=== PATIENT | female | born 1980 | race Caucasian/White ===

== ENCOUNTER 2017-05-26 13:58 | Emergency (ER) | payer OTHER ==
[~2017-05-26] VITALS: Ht 160 cm; Wt 63.5 kg
[~2017-05-26 13:58] MED LIST: AMOXICILLIN500 MG PO; FLEXERIL5 MG PO; MEDROL DOSEPAK4 MG PO; MOTRIN800 MG PO; NORCO 325 MG-101 TAB PO; ROBITUSSIN AC 110 ML PO; VICODIN 5/500 505 MG PO
[2017-05-26] MEDS ORDERED: CYCLOBENZAPRINE5 M3 PO (15:36)
[2017-05-26] MEDS ORDERED: Motrin,Rufen800 MG PO (15:36)
== END 2017-05-26 22:03 | disposition home or self-care (01) ==
LOC: ED 13:58
DX: S39.012A Strain of muscle, fascia and tendon of lower back, initial encounter (principal); F17.200 Nicotine dependence, unspecified, uncomplicated; X58.XXXA Exposure to other specified factors, initial encounter; Y93.89 Activity, other specified; Y92.9 Unspecified place or not applicable; Y99.9 Unspecified external cause status

== ENCOUNTER → 2023-03-28 | Outpatient (CLI) | payer OTHER ==
[~2023-03-28] MED LIST changes: +CYCLOBENZAPRINE5 M3 PO; +Motrin,Rufen800 MG PO
[2023-03-28 16:45] LABS: BASO % 0.5 % (0.0-1.0); EOS # 0.1 10*3/uL (0.0-0.4); EOS % 1.2 % (1.0-4.0); HEMATOCRIT 36.8 % (37.0-47.0); LYMPH # 2.7 10*3/uL (1.3-4.4); LYMPH % 35.5 % (27.0-41.0); MEAN CORPUSCULAR HGB 29.6 pg (27.0-31.0); MEAN CORPUSCULAR HGB CONC 32.9 g/dl (33.0-37.0); MEAN PLATELET VOLUME 10.3 fl (9.6-12.3); MONO # 0.4 10*3/uL (0.1-1.0); MONO % 5.3 % (3.0-9.0); NEUT # 4.4 10*3/uL (2.3-7.9); NEUT % 57.2 % (47.0-73.0); PLATELET COUNT AUTOMATED 286 10*3/uL (130-400); RED BLOOD COUNT 4.09 10*6/uL (4.10-5.10); RED CELL DISTRI WIDTH 12.5 % (0-14.5); WHITE BLOOD COUNT 7.7 10*3/uL (4.8-10.8)
[2023-03-28 16:49] LABS: BILIRUBIN Negative (Negative); BLOOD Negative (Negative); CLARITY Clear (Clear); COLOR Yellow (Yellow); GLUCOSE Negative (Negative); KETONE Negative (Negative); LEUKO ESTERASE 2+ (Negative); NITRITE Negative (Negative); UROBILINOGEN 0.2 E.U./dl (0.0-1.0)
[2023-03-28 17:08] LABS: BACTERIA 1+; RBC 0-2 rbc/hpf (0-2); WBC 16-20 wbc/hpf (0-5)
[2023-03-28 17:09] LABS: ALKALINE PHOSPHATASE 83 U/L (46-116); BUN 13 mg/dl (9-23); CHLORIDE 108 mmol/L (98-107); CHOLESTEROL 173 mg/dL (<200); LDL CHOLESTEROL 80 mg/dL (9-159); POTASSIUM 3.8 mmol/L (3.4-5.1); SGPT/ALT 16 U/L (10-49); TOTAL PROTEIN 7.3 gm/dL (6.0-8.0); TRIGLYCERIDES 162 mg/dl (<150)
== END | disposition home or self-care (01) ==
LOC: LAB 16:16
PROVIDERS: ATTEND Nurse Practitioner Family
DX: Z00.01 Encounter for general adult medical examination with abnormal findings (principal); Z13.1 Encounter for screening for diabetes mellitus; Z13.6 Encounter for screening for cardiovascular disorders

== ENCOUNTER → 2023-03-29 | Outpatient (CLI) | payer OTHER | END | disposition home or self-care (01) | LOC: LAB 16:15 | PROVIDERS: ATTEND Nurse Practitioner Women's Health | DX: N95.1 Menopausal and female climacteric states (principal); R68.82 Decreased libido ==

== ENCOUNTER → 2023-05-12 | Outpatient (CLI) | payer OTHER ==
[~2023-05-12] MED LIST changes: +BUPROPION HCL150 M3 PO
[2023-05-12 10:34] LABS: FREE T4 0.98 ng/dl (0.89-1.76)
[2023-05-13 08:09] LABS: THYROID PEROXIDASE (TPO) AB 9 IU/mL (0-34)
[2023-05-13 13:06] LABS: ANTI-DSDNA ANTIBODIES 1 IU/mL (0-9); ANTI-RNP ANTIBODIES <0.2 AI (0.0-0.9); ANTICHROMATIN ANTIBODIES <0.2 AI (0.0-0.9); ANTISCLERODERMA-70 AB <0.2 AI (0.0-0.9); SJOGREN ANTI-SS-A <0.2 AI (0.0-0.9); SJOREN AB, ANTI-SS-B <0.2 AI (0.0-0.9)
[2023-05-13 15:07] LABS: THYROGLOBULIN ANTIBODY <1.0 IU/mL (0.0-0.9)
== END | disposition home or self-care (01) ==
LOC: LAB 08:59 → MAMMO 09:30
PROVIDERS: ATTEND Nurse Practitioner Women's Health
DX: Z12.31 Encounter for screening mammogram for malignant neoplasm of breast (principal); N63.21 Unspecified lump in the left breast, upper outer quadrant; R79.89 Other specified abnormal findings of blood chemistry; R07.9 Chest pain, unspecified

== ENCOUNTER → 2023-05-18 | Outpatient (CLI) | payer OTHER | END | disposition home or self-care (01) | LOC: CARD 01:54 | PROVIDERS: ATTEND Nurse Practitioner Family | DX: I37.1 Nonrheumatic pulmonary valve insufficiency (principal); R01.1 Cardiac murmur, unspecified ==

== ENCOUNTER → 2023-05-26 | Outpatient (CLI) | payer OTHER | END | disposition home or self-care (01) | LOC: MAMMO 07:47 | PROVIDERS: ATTEND Nurse Practitioner Women's Health | DX: N63.21 Unspecified lump in the left breast, upper outer quadrant (principal) ==

== ENCOUNTER 2023-09-12 04:26 | Emergency (ER) | payer OTHER ==
[~2023-09-12] VITALS: Ht 160 cm; Wt 78.0 kg
[2023-09-12 05:31] LABS: BILIRUBIN Negative (Negative); BLOOD Negative (Negative); CLARITY Clear (Clear); COLOR Yellow (Yellow); GLUCOSE Negative (Negative); KETONE Negative (Negative); LEUKO ESTERASE Negative (Negative); NITRITE Negative (Negative); PH 5.5 (4.5-8.0); SPECIFIC GRAVITY 1.015 (1.001-1.030); UROBILINOGEN 0.2 E.U./dl (0.0-1.0)
[2023-09-12 05:38] LABS: RBC 0-2 rbc/hpf (0-2); WBC 0-2 wbc/hpf (0-5)
[2023-09-12] MEDS ORDERED: NAPROXEN250 MG PO (05:47)
[2023-09-12] MEDS ORDERED: METHOCARBAMOL500 M1 PO (05:47)
== END 2023-09-12 06:06 | disposition home or self-care (01) ==
LOC: ED 04:26
PROVIDERS: Internal Medicine
DX: S39.012A Strain of muscle, fascia and tendon of lower back, initial encounter (principal); Z90.710 Acquired absence of both cervix and uterus; X58.XXXA Exposure to other specified factors, initial encounter; Y93.89 Activity, other specified; Y92.009 Unspecified place in unspecified non-institutional (private) residence as the place of occurrence of the external cause; Y99.8 Other external cause status

== ENCOUNTER → 2024-06-19 | Outpatient (CLI) | payer OTHER ==
[~2024-06-19] MED LIST changes: +METHOCARBAMOL500 M1 PO; +NAPROXEN250 MG PO
[2024-06-19 10:14] LABS: BASO % 0.8 % (0.0-1.0); EOS # 0.1 10*3/uL (0.0-0.4); EOS % 1.5 % (1.0-4.0); HEMATOCRIT 39.2 % (37.0-47.0); MEAN CELL VOLUME 90.1 fl (81.0-99.0); MEAN CORPUSCULAR HGB 29.4 pg (27.0-31.0); MEAN CORPUSCULAR HGB CONC 32.7 g/dl (33.0-37.0); MEAN PLATELET VOLUME 9.6 fl (9.6-12.3); MONO # 0.5 10*3/uL (0.1-1.0); MONO % 8.7 % (3.0-9.0); NEUT # 3.2 10*3/uL (2.3-7.9); NEUT % 60.5 % (47.0-73.0); PLATELET COUNT AUTOMATED 265 10*3/uL (130-400); RED BLOOD COUNT 4.35 10*6/uL (4.10-5.10); RED CELL DISTRI WIDTH 12.3 % (0-14.5); WHITE BLOOD COUNT 5.2 10*3/uL (4.8-10.8)
[2024-06-19 10:39] LABS: ALKALINE PHOSPHATASE 89 U/L (46-116); BUN 13 mg/dl (9-23); CHLORIDE 105 mmol/L (98-107); SGPT/ALT 62 U/L (5-49); TOTAL PROTEIN 7.5 gm/dL (6.0-8.0)
== END | disposition home or self-care (01) ==
LOC: LAB 09:53
PROVIDERS: ATTEND Nurse Practitioner Family
DX: E03.9 Hypothyroidism, unspecified (principal)

== ENCOUNTER → 2024-11-02 | Outpatient (CLI) | payer OTHER | END | disposition home or self-care (01) | LOC: ORTHO 02:20 | PROVIDERS: ATTEND Orthopaedic Surgery | DX: D16.22 Benign neoplasm of long bones of left lower limb (principal) ==

== ENCOUNTER → 2025-01-14 | Outpatient (CLI) | payer OTHER | END | disposition home or self-care (01) | LOC: RAD 13:55 | PROVIDERS: ATTEND Nurse Practitioner Family | DX: R06.02 Shortness of breath (principal); R07.81 Pleurodynia ==

== ENCOUNTER → 2025-06-21 | Outpatient (CLI) | payer OTHER ==
[~2025-06-21] MED LIST changes: +GADOTERATE MEGLUMINE 10 MMOL/20 ML VIAL IV ONE
== END | disposition home or self-care (01) ==
LOC: MRI 10:56
PROVIDERS: ATTEND Nurse Practitioner Family
DX: R51.9 Headache, unspecified (principal); H53.9 Unspecified visual disturbance; Z82.3 Family history of stroke